=== PATIENT | male | born 1990 | race Caucasian/White ===

== ENCOUNTER 2019-04-28 13:11 | Outpatient (CLI) | payer OTHER ==
--- NOTE | 2019-04-28 13:38 | RAD ---
Exam:3 views left foot HISTORY: Pain. Pain. COMPARISON: None FINDINGS: No fracture. No cortical irregularity. No periosteal reaction. Lisfranc alignment is mainta ined and the joint spaces are preserved. No significant hypertrophy of the calcaneus at the plantar aponeurosis insertion site. IMPRESSION: Unremarkable 3 views left foot
== END 2019-04-28 13:12 | disposition home or self-care (01) ==
LOC: BICRAD 13:11
PROVIDERS: ATTEND Podiatrist
DX: M79.672 Pain in left foot (principal)